=== PATIENT | female | born 1940 | race Caucasian/White ===

== ENCOUNTER 2016-09-30 06:55 | Day surgery (SDC) | payer MEDICARE, BC ==
[2016-09-30] MEDS ORDERED: ACETAMINOPHEN 325 MG ONE (07:00)
[2016-09-30 07:17] VITALS: RESP 18; O2SAT 98
[2016-09-30] MEDS: PROPARACAINE HCL 0.5% OPHTHALMIC SOL ONE ×3 (07:23→08:33)
[2016-09-30] MEDS: PHENYLEPHRINE HCL 10% OPHTHAL SOL ONE ×2 (07:24→07:37)
[2016-09-30] MEDS: CYCLOPENTOLATE 1% SOL ONE ×2 (07:24→07:37)
[2016-09-30] MEDS ORDERED: FENTANYL CITRATE 50 MCG/ML SOL ONE (07:49)
[2016-09-30] MEDS ORDERED: MIDAZOLAM 2 MG/2 ML SOL ONE (07:50)
[2016-09-30] MEDS ORDERED: LIDOCAINE HCL 1% MPF SOL ONE (08:26)
[2016-09-30] MEDS ORDERED: POVIDONE IODINE 5% SOL ONE (08:26)
[2016-09-30] MEDS ORDERED: BSS W/ 0.25MG P.F. EPI 1 BOTTLE ONE (08:27)
[2016-09-30] MEDS ORDERED: TRYPAN BLUE 0.5 ML SOL IO ONE (08:27)
[2016-09-30 09:27] VITALS: BP 116/74; PULSE 59; TEMP 97.4
[2016-09-30] MEDS ORDERED: ACETAZOLAMIDE 500 MG CER ONE (09:27)
== END 2016-09-30 10:05 | disposition home or self-care (01) | DRG 125 ==
LOC: SURG 06:55
PROVIDERS: ATTEND Ophthalmology
DX: H25.9 Unspecified age-related cataract (principal); H21.81 Floppy iris syndrome; H57.09 Other anomalies of pupillary function
CPT/HCPCS: J2250; J3010; J2001

== ENCOUNTER 2017-09-24 19:58 | Emergency (ER) | payer MEDICARE, BC ==
[2017-09-24 20:40] VITALS: RESP 24; TEMP 98.5
[2017-09-24] MEDS ORDERED: KETOROLAC TROMETHAMINE 30 MG/ML SOL IM ONE (20:43)
[2017-09-24] MEDS ORDERED: APAP/HYDROCODONE 325/5 TAB PO ONE (20:43)
[2017-09-24] MEDS ORDERED: KETOROLAC TROMETHAMINE 30 MG/ML SOL ONE (20:49)
[2017-09-24] MEDS ORDERED: APAP/HYDROCODONE 325/5 TAB ONE (20:51)
[2017-09-24 22:39] VITALS: BP 165/89; PULSE 63; O2SAT 99
== END 2017-09-24 22:00 | disposition home or self-care (01) | DRG 556 ==
LOC: ED 19:58
DX: M79.1 Myalgia (principal)
CPT/HCPCS: 99283; J1885; A9270-GY

== ENCOUNTER 2018-07-01 10:29 | Day surgery (SDC) | payer MEDICARE, BC ==
[2018-07-01] MEDS ORDERED: LIDOCAINE HCL 1% MPF 30 SOL ONE (11:18)
[2018-07-01] MEDS ORDERED: BUPIVACAINE HCL 0.5% MPF 10 ML SOL ONE (11:18)
[2018-07-01 12:00] VITALS: TEMP 97.4
[2018-07-01 12:14] VITALS: RESP 20
[2018-07-01 12:17] VITALS: BP 141/91; PULSE 63; O2SAT 98
== END 2018-07-01 12:27 | disposition home or self-care (01) | DRG 554 ==
LOC: SURG 10:29
PROVIDERS: ATTEND Nurse Anesthetist, Certified Registered
DX: M12.88 Other specific arthropathies, not elsewhere classified, other specified site (principal)
CPT/HCPCS: J2001

== ENCOUNTER 2018-07-21 07:59 | Day surgery (SDC) | payer MEDICARE, BC ==
[2018-07-21 08:27] VITALS: BP 128/83; PULSE 64; RESP 16; TEMP 97.8; O2SAT 100
== END 2018-07-21 09:14 | disposition home or self-care (01) | DRG 951 ==
LOC: SURG 07:59
PROVIDERS: ATTEND Nurse Anesthetist, Certified Registered
DX: Z53.9 Procedure and treatment not carried out, unspecified reason (principal)

== ENCOUNTER 2018-08-04 10:26 | Day surgery (SDC) | payer MEDICARE, BC | END 2018-08-04 11:45 | disposition home or self-care (01) | LOC: SURG 10:26 ==

== ENCOUNTER 2018-09-01 08:55 | Day surgery (SDC) | payer MEDICARE, BC ==
[2018-09-01 09:28] VITALS: RESP 16
[2018-09-01] MEDS ORDERED: MIDAZOLAM 2 MG/2 ML SOL ONE (10:06)
[2018-09-01] MEDS ORDERED: FENTANYL 100MCG/2ML SOL ONE (10:06)
[2018-09-01] MEDS ORDERED: LIDOCAINE HCL 2% MPF 10 ML SOL ONE (10:09)
[2018-09-01] MEDS ORDERED: TRIAMCINOLONE ACETONIDE 40 MG/ML SUS ONE (10:09)
[2018-09-01] MEDS ORDERED: LIDOCAINE HCL 1% MPF 30 SOL ONE (10:10)
[2018-09-01] MEDS ORDERED: BUPIVACAINE HCL 0.25% MPF 30 ML SOL INFIL ONE (10:10)
[2018-09-01 11:20] VITALS: BP 166/93; PULSE 59; TEMP 97.9; O2SAT 99
== END 2018-09-01 11:30 | disposition home or self-care (01) | DRG 554 ==
LOC: SURG 08:55
PROVIDERS: ATTEND Nurse Anesthetist, Certified Registered
DX: M12.88 Other specific arthropathies, not elsewhere classified, other specified site (principal)
CPT/HCPCS: J2250; J3010; J2001; J3300

== ENCOUNTER 2018-10-26 13:15 | Day surgery (SDC) | payer MEDICARE, BC ==
[2018-10-26] MEDS ORDERED: BUPIVACAINE HCL 0.5% MPF 10 ML SOL ONE (14:04)
[2018-10-26] MEDS ORDERED: LIDOCAINE HCL 1% MPF 30 SOL ONE (14:04)
[2018-10-26 14:29] VITALS: O2SAT 100
[2018-10-26 14:37] VITALS: PULSE 64; RESP 20; TEMP 98.1
[2018-10-26 14:47] VITALS: BP 179/89
== END 2018-10-26 14:53 | disposition home or self-care (01) | DRG 554 ==
LOC: SURG 13:15
PROVIDERS: ATTEND Nurse Anesthetist, Certified Registered
DX: M12.88 Other specific arthropathies, not elsewhere classified, other specified site (principal)
CPT/HCPCS: J2001

== ENCOUNTER 2018-11-02 10:38 | Day surgery (SDC) | payer MEDICARE, BC ==
[2018-11-02 11:05] VITALS: RESP 14
[2018-11-02] MEDS ORDERED: BUPIVACAINE HCL 0.5% MPF 10 ML SOL ONE (11:23)
[2018-11-02] MEDS ORDERED: LIDOCAINE HCL 1% MPF 30 SOL ONE (11:23)
[2018-11-02 11:57] VITALS: PULSE 65
[2018-11-02 12:06] VITALS: TEMP 98; O2SAT 98
[2018-11-02 12:24] VITALS: BP 157/95
== END 2018-11-02 12:30 | disposition home or self-care (01) | DRG 554 ==
LOC: SURG 10:38
PROVIDERS: ATTEND Nurse Anesthetist, Certified Registered
DX: M12.88 Other specific arthropathies, not elsewhere classified, other specified site (principal)
CPT/HCPCS: J2001

== ENCOUNTER 2018-11-23 11:55 | Day surgery (SDC) | payer MEDICARE, BC ==
[2018-11-23] MEDS ORDERED: MIDAZOLAM 2 MG/2 ML SOL ONE (12:59)
[2018-11-23] MEDS ORDERED: FENTANYL 100MCG/2ML SOL ONE (12:59)
[2018-11-23] MEDS ORDERED: SODIUM CHLORIDE 0.9% FLUSH 10 ML SOL IV ONE (13:06)
[2018-11-23 13:13] VITALS: O2SAT 99
[2018-11-23] MEDS ORDERED: TRIAMCINOLONE ACETONIDE 40 MG/ML SUS IM ONE (13:32)
[2018-11-23 13:50] VITALS: BP 160/86; PULSE 60; RESP 16; TEMP 99
== END 2018-11-23 14:14 | disposition home or self-care (01) | DRG 554 ==
LOC: SURG 11:55
PROVIDERS: ATTEND Nurse Anesthetist, Certified Registered
DX: M12.88 Other specific arthropathies, not elsewhere classified, other specified site (principal)
CPT/HCPCS: J2250; J3010; J3300